=== PATIENT | male | born 1960 | race American Indian/Alaskan Native ===

== ENCOUNTER 2018-09-29 06:53 | Day surgery (SDC) | payer BC ==
[2018-09-28 11:24] VITALS: BMI 25.3
[2018-09-29 07:42] VITALS: PULSE 56; RESP 19; TEMP 97.8; O2SAT 97
[2018-09-29] MEDS ORDERED: Lactated Ringer's 500 ML IV SCH (08:15)
[2018-09-29] MEDS ORDERED: Propofol 10 mg/ml Inj (20 ML) ONE (08:55)
[2018-09-29] MEDS ORDERED: Lidocaine Hydrochloride 5 ML INJ ONE (08:55)
[2018-09-29] MEDS ORDERED: Lactated Ringer's 1,000 ML IV ONE (09:00)
[2018-09-29 10:08] VITALS: BP 169/67
== END 2018-09-29 10:23 | disposition home or self-care (01) ==
LOC: C.ENDO 06:53
PROVIDERS: ATTEND Internal Medicine Gastroenterology
DX: Z12.11 Encounter for screening for malignant neoplasm of colon (principal); D12.2 Benign neoplasm of ascending colon; K64.8 Other hemorrhoids
CPT/HCPCS: 45380; 88305; J2704; J7120